=== PATIENT | male | born 1980 | race African-American/Black ===

== ENCOUNTER 2019-02-05 11:20 | Emergency (ER) | payer SELFPAY ==
[2019-02-05 12:00] LABS: Absolute Lymphocytes (CBC) 1.4 K/uL (0.7-4.9); Absolute Monocytes 0.5 K/uL (0.1-1.3); Absolute Neutrophil 1.7 K/uL (1.8-8.0); Basophils % 0.7 % (0-1.3); Eosinophils % 1.9 % (0-4.4); Hematocrit 46.3 % (39.6-49.0); Lymphocytes % 36.6 % (15.3-44.8); MPV 8.1 fL (7.6-11.3); Monocytes % 14.9 % (3.3-12.3); RBC Red Blood Cell Count 5.27 M/uL (4.33-5.43)
[2019-02-05] MEDS ORDERED: NA CHLORIDE 0.9% 1,000 ML ONE (12:00)
[2019-02-05] MEDS ORDERED: PROMETHAZINE 25 MG/ML VIAL ONE (12:13)
[2019-02-05 12:22] LABS: ALT/SGPT 15 U/L (12-78); AST/SGOT 16 U/L (15-37); Albumin 3.7 g/dL (3.4-5.0); Alkaline Phosphatase 78 U/L (45-117); BUN Blood Urea Nitrogen 8 mg/dL (7-18); Bicarbonate 28 mmol/L (21-32); Bilirubin Direct 0.2 mg/dL (0-0.2); Bilirubin Total 0.5 mg/dL (0.2-1.0); Glucose Level 92 mg/dL (74-106); Potassium 3.6 mmol/L (3.5-5.1); Protein, Total 7.4 g/dL (6.4-8.2); Sodium Level 142 mmol/L (136-145)
[2019-02-05 12:27] LABS: Barbiturates NEGATIVE (NEGATIVE); Benzodiazepines NEGATIVE (NEGATIVE); Cocaine NEGATIVE (NEGATIVE); METHAMPHETAM POSITIVE (NEGATIVE); Methadone NEGATIVE (NEGATIVE); Opiates NEGATIVE (NEGATIVE); Phencyclidine NEGATIVE (NEGATIVE); THC Cannibis POSITIVE (NEGATIVE)
[2019-02-05 12:57] LABS: Urine Blood NEGATIVE (NEG); Urine Glucose NEGATIVE (NEG); Urine Protein 1+ (NEG); Urine Specific Gravity >1.030 (1.005-1.030)
--- NOTE | 2019-02-05 13:26 | ER ---
Nurse's Notes [facility] Name: Tc Urena Age: 38 yrs Sex: Male : 1980 Arrival Date: 02/05/2019 Time: 11:23 Bed 14 Private MD: None, None Diagnosis: Dysuria;Lower abdominal pain, unspecified;Volume depletion Presentation: 02/05 11:24 Presenting complaint: Patient states: i have this pain on my L lower abd, L flank area; hj pain moves to back, reports fever, chills and diarrhea;reports vomiting x 1;. Transition of care: patient was not received from another setting of care. Onset of symptoms was February 05, 2019. Risk Assessment: Do you want to hurt yourself or someone else? Patient reports no desire to harm self or others. Initial Sepsis Screen: Does the patient meet any 2 criteria? No. Patient's initial sepsis screen is negative. Does the patient have a suspected source of infection? No. Patient's initial sepsis screen is negative. Care prior to arrival: None. 11:24 Method Of Arrival: Ambulatory 11:24 Acuity: MISAEL 3 hj Historical: - Allergies: 11:25 No Known Allergies; hj - Home Meds: 11:25 None [Active]; hj - PMHx: 11:25 None; hj - PSHx: 11:25 None; hj - Immunization history:: Adult Immunizations up to date. - Social history:: Smoking status: unknown. - Ebola Screening: : Patient negative for fever greater than or equal to 101.5 degrees Fahrenheit, and additional compatible Ebola Virus Disease symptoms Patient denies exposure to infectious person Patient denies travel to an Ebola-affected area in the 21 days before illness onset. Screenin:23 Abuse screen: Denies threats or abuse. Denies injuries from another. Nutritional rv screening: No deficits noted. Tuberculosis screening: No symptoms or risk factors identified. Fall Risk None identified. Assessment: 12:22 General: Appears in no apparent distress. comfortable, Behavior is calm, cooperative. rv Pain: Complains of pain in abdomen and left lower quadrant. Neuro: Level of Consciousness is awake, alert, obeys commands, Oriented to person, place, time, situation. Cardiovascular: Capillary refill < 3 seconds. Respiratory: Airway is patent. GI: Bowel sounds present X 4 quads. Abd is soft and non tender X 4 quads. Reports diarrhea, nausea, vomiting. : No signs and/or symptoms were reported regarding the genitourinary system. EENT: No signs and/or symptoms were reported regarding the EENT system. Derm: Skin is intact. Musculoskeletal: No signs and/or symptoms reported regarding the musculoskeletal system. 13:05 Reassessment: Patient appears in no apparent distress at this time. pt appears to be iw sleeping, awakens easily to verbal stimuli, VSS, pt requesting blanket, given, denies any other needs, lights dimmed, call light within reach. Vital Signs: 11:26 BP 112 / 81; Pulse 95; Resp 18; Temp 98.8(TE); Pulse Ox 99% on R/A; Weight 68.04 kg; hj Height 5 ft. 6 in. (167.64 cm); Pain 10/10; 13:04 BP 108 / 83; Pulse 84; Resp 16; Pulse Ox 97% on R/A; Pain 0/10; iw 11:26 Body Mass Index 24.21 (68.04 kg, 167.64 cm) ED Course: 11:23 Patient arrived in ED. mr 11:23 None, None is Private Physician. mr 11:25 Triage completed. hj 11:26 Arm band placed on left wrist. hj 11:38 Lois Coats FNP-C is [facility]. snw 11:38 Goyo Allred MD is Attending Physician. snw 11:47 David Duron RN is Primary Nurse. rv 11:50 Inserted saline lock: 18 gauge in right forearm, using aseptic technique. Blood rv collected. 12:24 Patient has correct armband on for positive identification. Placed in gown. Bed in low rv position. Call light in reach. Side rails up X 1. Pulse ox on. NIBP on. 12:51 Primary Nurse role handed off by David Duron RN iw 12:51 Jennyfer Urena RN is Primary Nurse. iw 13:45 No provider procedures requiring assistance completed. IV discontinued, intact, iw bleeding controlled, No redness/swelling at site. Pressure dressing applied. Administered Medications: 11:50 Drug: NS 0.9% 1000 ml Route: IV; Rate: 125 ml/hr; Site: right forearm; rv 13:02 Drug: NS 0.9% 1000 ml Route: IV; Rate: 1 bolus; Site: right forearm; iw 13:04 Not Given (Patient Refused): Phenergan 12.5 mg IVP once iw Outcome: 13:26 Discharge ordered by . clara 13:45 Discharged to home ambulatory, with family. iw 13:45 Condition: good 13:45 Discharge instructions given to patient, family, Instructed on discharge instructions, follow up and referral plans. medication usage, Demonstrated understanding of instructions, follow-up care, medications, Prescriptions given X 1. 13:46 Patient left the ED. iw Signatures: Lois Coats, FURNITURE SALESPERSON-C FURNITURE SALESPERSON-Csnw Zeinab Nam Irene, RN RN iw Justin Jeronimo, RN HERMELINDA David Duron, HERMELINDA RN rv Corrections: (The following items were deleted from the chart) 11:28 11:26 Pulse 95bpm; Resp 18bpm; Pulse Ox 99% RA; Temp 98.8F Temporal; 68.04 kg; Height 5 hj ft. 6 in.; BMI: 24.2; Pain 10/10; hj
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
[2019-02-05 14:33] VITALS: TEMP 98.8
[2019-02-05 14:34] VITALS: BP 108/83; O2SAT 97
== END 2019-02-05 13:46 | disposition home or self-care (01) ==
LOC: ER 11:20
DX: E86.9 Volume depletion, unspecified (principal); R30.0 Dysuria
CPT/HCPCS: 36415; 80048; 80076; 80307; 81003; 85025; 99284; J2550; J7030